=== PATIENT | male | born 1995 | race Caucasian/White ===

== ENCOUNTER 2016-12-30 09:53 | Day surgery (SDC) | payer OTHER ==
[2016-12-28 17:50] VITALS: BMI 20.1
[~2016-12-30 09:53] MED LIST: DEXAMETHASONE SOD PHOSPHATE 10 MG/ML 1 ML VIAL IV ONE; DEXAMETHASONE SOD PHOSPHATE 4 MG/ML 1 ML VIAL IV ONE; FAMOTIDINE 20 MG/2 ML VIAL IV ONE; HYDROmorphone 1 MG/ML 1 ML SYRINGE IVP PRN; LACTATED RINGERS 1,000 ML IV SCH; MIDAZOLAM 2 MG/2 ML VIAL IV PRN; ONDANSETRON 4 MG/2 ML VIAL IVP ONE; SCOPOLAMINE 1.5MG/72HR PATCH TRANSDERM ONE; ceFAZolin 1,000 MG in DEXTROSE/WATER 1 50ML.BAG IV ONE
[2016-12-30] MEDS: OXYMETAZOLINE 0.05% NASL SPRAY 15 ML NASAL ONE ×5 (10:32→10:54)
[2016-12-30] MEDS ORDERED: LIDOCAINE 1% INJ 10MG/ML (20 ML MDV) ONE (11:44)
[2016-12-30] MEDS ORDERED: MIDAZOLAM 2 MG/2 ML VIAL ONE (11:44)
[2016-12-30] MEDS ORDERED: fentaNYL (PF) 50 MCG/ML 2 ML AMP ONE (11:44)
[2016-12-30] MEDS ORDERED: NEOSTIGMINE 1 MG/ML 10 ML VIAL ONE (11:44)
[2016-12-30] MEDS ORDERED: ROCURONIUM BROMIDE 10 MG/ML 10 ML VIAL IV ONE (11:44)
[2016-12-30] MEDS ORDERED: PROPOFOL 10 MG/ML 20 ML VIAL IV ONE (11:44)
[2016-12-30] MEDS ORDERED: FLUMAZENIL 0.1 MG/ML 5 ML VIAL IVP ONE (11:44)
[2016-12-30] MEDS ORDERED: GLYCOPYRROLATE 0.2 MG/ML 2 ML VIAL ONE ×2 (11:44)
[2016-12-30] MEDS ORDERED: BACITRACIN 500 UNIT/GM OINT 28.4 GM TUBE TOPICAL ONE (12:14)
[2016-12-30] MEDS ORDERED: LIDOCAINE 1%-EPI 1:100,000 20 ML VIAL SUBMUCOSAL ONE (12:14)
--- NOTE | 2016-12-30 12:19 | P.OP ---
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 He has been on Flonase which has not helped his symptoms. Operative Findings: Nasal septum deviated to the left inferior turbinate hypertrophy bilateral Description of Procedure: The patient was brought in the operative suite and placed in a supine position. Patient underwent induction of general anesthesia with oral endotracheal intubation without difficulty. The patient was prepped and draped in usual aseptic fashion. 1% lidocaine with 1-100,000 epinephrine was infused submucosally into both sides nasal septum. While this was taking vasoconstrictive effect the inferior turbinates were infractured with [place] elevator partial submucous resection inferior turbinates performed with Coblation therefore ablating a portion of the submucosal soft tissue. They were then outfractured with the [place] elevator. A left hemitransfixion incision was then made with the mucoperichondrial mucoperiosteal flap on the left elevated. Bony cartilaginous junction was disarticulated and mucoperiosteal flap on the right was elevated. Bony nasal septal deformities were removed Opal forceps. An inferior cartilaginous strip was removed leaving a full 1.5 cm caudal strut. Checking intranasally this corrected the nasoseptal deformities and the hemitransfixion incision was closed running 4-0 chromic suture. The patient was suctioned in oral gastric fashion. The patient was allowed to emerge from general anesthesia having tolerated procedure well was extubated in the operating suite and transferred postoperative recovery area in satisfactory condition.
[2016-12-30 13:12] VITALS: TEMP 98.2
[2016-12-30 13:15] VITALS: RESP 16
[2016-12-30] MEDS ORDERED: LACTATED RINGERS 1,000 ML IV ONE ×2 (13:30→16:00)
[2016-12-30] MEDS ORDERED: HYDROcodone/APAP 7.5-325MG 1 EACH TAB PO ONE (15:19)
[2016-12-30 16:44] VITALS: BP 138/89; PULSE 83
== END 2016-12-30 17:13 | disposition home or self-care (01) ==
LOC: OR 09:53
PROVIDERS: ATTEND Otolaryngology
DX: J34.2 Deviated nasal septum (principal); J34.3 Hypertrophy of nasal turbinates; F17.200 Nicotine dependence, unspecified, uncomplicated; Z79.899 Other long term (current) drug therapy
CPT/HCPCS: 88300; 30520; 30140; J2250; J1100; J2710; J2405; J2001; J3010; J1170; J2704

== ENCOUNTER 2024-05-28 17:00 | Emergency (ER) | payer OTHER ==
[2024-05-28] MEDS ORDERED: DIPH,PERTUS(ACELL)TETVAC-LF 0.5 ML VIAL IM ONE (17:35)
[2024-05-28] MEDS ORDERED: LIDOCAINE 1% INJ 10MG/ML (20 ML MDV) ONE (19:14)
--- NOTE | 2024-06-30 10:21 | XR ---
Patient Michael Whitney ID [id number] Order # EXAMINATION TYPE: XR hand complete RT DATE OF EXAM: 05/28/2024 COMPARISON: No comparison available on downtime PACS. HISTORY: Laceration second proximal phalanx TECHNIQUE: 3 view right hand FINDINGS: No radiopaque foreign bodies are evident. No acute fracture or dislocation is evident. Brii ent's soft tissue injury is not identified. Follow up exams can be performed 7-10 days from acute trauma for continued pain IMPRESSION: 1. No acute osseous abnormality right hand.
== END 2024-05-28 22:36 | disposition home or self-care (01) ==
LOC: EC 17:00
CPT/HCPCS: 90715; 99282